=== PATIENT | male | born 1940 | race Two or more races ===

== ENCOUNTER 2020-01-21 07:19 | Outpatient (CLI) | payer OTHER | END 2020-01-21 07:41 | disposition home or self-care (01) | LOC: NUCLEAR 07:19 | PROVIDERS: ATTEND Specialist | DX: C61 Malignant neoplasm of prostate (principal) | CPT/HCPCS: 78306; A9503 ==

== ENCOUNTER 2024-12-15 06:15 | Emergency (ER) | payer OTHER ==
[~2024-12-15] VITALS: Ht 172.7 cm; Wt 90.7 kg
[2024-12-15] MEDS ORDERED: VALSARTAN-HCTZ1 EAC1 PO (06:29)
[2024-12-15] MEDS ORDERED: PANTOPRAZOLE SO40 MG PO (06:29)
[2024-12-15] MEDS ORDERED: AMLODIPINE BESYL5 MG PO (06:29)
[2024-12-15] MEDS ORDERED: ATORVASTATIN CA40 MG PO (06:29)
[2024-12-15] MEDS ORDERED: SUMATRIPTAN SU100 MG PO (06:29)
[2024-12-15] MEDS ORDERED: UROXATRAL10 MG PO (06:29)
[2024-12-15] MEDS ORDERED: FAMOtidine 10 MG/ML (4ML VIAL) IV PUSH STA (06:58)
[2024-12-15] MEDS ORDERED: PANTOPRAZOLE SODIUM 4 MG/ML REDILUIDO IV PUSH STA (06:59)
[2024-12-15] MEDS ORDERED: HYOSCYAMINE SULFATE 0.125 MG TAB.SUBL SL ONE (07:00)
[2024-12-15] MEDS ORDERED: BISMUTH SUBSALICYLATE 524 MG/30 ML BLIST.PACK PO STA (07:18)
== END 2024-12-15 08:24 | disposition home or self-care (01) ==
LOC: ER 06:15
DX: R10.13 Epigastric pain (principal); I10 Essential (primary) hypertension
CPT/HCPCS: 96365; 99282; J3490